=== PATIENT | male | born 1960 | race Two or more races ===

== ENCOUNTER 2022-05-09 11:28 | Emergency (ER) | payer OTHER ==
[~2022-05-09] VITALS: Ht 167.6 cm; Wt 64.4 kg
[2022-05-09] MEDS ORDERED: IBUP800T27 PO (14:41)
[2022-05-09 15:43] VITALS: BP 136/72
[2022-05-09] MEDS: IBUPROFEN 800 MG TAB PO ONE (15:59)
== END 2022-05-09 16:59 | disposition home or self-care (01) ==
LOC: ER 11:28 → EDBD 11:28 → ER 16:56
DX: S52.502A Unspecified fracture of the lower end of left radius, initial encounter for closed fracture (principal); W11.XXXA Fall on and from ladder, initial encounter; Y93.89 Activity, other specified; Y92.89 Other specified places as the place of occurrence of the external cause; Y99.8 Other external cause status
CPT/HCPCS: 29125; 73110